=== PATIENT | male | born 1985 | race Caucasian/White ===

== ENCOUNTER 2016-11-23 07:38 | Day surgery (SDC) | payer BC ==
[~2016-11-23 07:38] MED LIST: Lactated Ringers 1,000 ML IV SCH; Lidocaine 1%/Sod Bicarbonate in NS 8.4% 1 ML Syringe PRN; Sodium Chloride 0.9% 10 ML Syringe FLUSH PRN
[2016-11-23] MEDS ORDERED: Bupivacaine 0.25% 30 ML SDV ONE (07:55)
--- NOTE | 2016-11-23 08:26 | PCM.PREANE ---
Preanesthetic Assessment - Procedure Proposed Procedure: Repair right 5th metacarpal fracture - Anesthesia/Transfusion/Family Hx Anesthesia History: Prior Anesthesia Without Reaction (patient states local anesthetic is not very effective for him) Family History of Anesthesia Reaction: No Transfusion History: No Prior Transfusion(s) Intubation History: Unknown - Review of Systems General: No Symptoms Pulmonary: Other (symbicort daily, albuterol prn ) Cardiovascular: No Symptoms Gastrointestinal: Difficulty swallowing (eosinophilic esophagitis ) Neurological: No Symptoms Other: Reports: None - Physical Assessment NPO Status Date: 11/22/16 NPO Status Time: 23:30 O2 Sat by Pulse Oximetry: 97 Respiratory Rate: 16 Vital Signs: Last Vital Signs Temp 36.6 C 11/23/16 07:42 Pulse 73 11/23/16 07:42 Resp 16 11/23/16 07:42 BP 139/100 H 11/23/16 07:42 Pulse Ox 97 11/23/16 07:42 Height: 1.8 m Weight: 112.945 kg ASA Class: 2 Mental Status: Alert & Oriented x3 Airway Class: Mallampati = 1 Dentition: Reports: Normal Dentition Thyro-Mental Finger Breadths: 3 Mouth Opening Finger Breadths: 3 ROM/Head Extension: Full Lungs: Clear to auscultation, Normal respiratory effort Cardiovascular: Regular Rate, Regular Rhythm - Lab Values: Laboratory Last Values WBC 6.41 K/mm3 (4.23-9.07) 11/22/16 11:25 RBC 5.69 M/mm3 (4.63-6.08) 11/22/16 11:25 Hgb 17.0 gm/L (13.7-17.5) 11/22/16 11:25 Hct 48.8 % (40.1-51.0) 11/22/16 11:25 MCV 85.8 fl (79.0-92.2) 11/22/16 11:25 MCH 29.9 pg (25.7-32.2) 11/22/16 11:25 MCHC 34.8 g/dl (32.2-35.5) 11/22/16 11:25 RDW Std Deviation 39.8 fL (35.1-43.9) 11/22/16 11:25 Plt Count 201 K/mm3 (163-337) 11/22/16 11:25 MPV 10.0 fl (9.4-12.3) 11/22/16 11:25 Neut % (Auto) 56.4 % (34.0-67.9) 11/22/16 11:25 Lymph % (Auto) 31.8 % (21.8-53.1) 11/22/16 11:25 [place] % (Auto) 8.4 % (5.3-12.2) 11/22/16 11:25 Eos % (Auto) 2.7 (0.8-7.0) 11/22/16 11:25 Baso % (Auto) 0.5 % (0.1-1.2) 11/22/16 11:25 Neut # (Auto) 3.62 K/mm3 (1.78-5.38) 11/22/16 11:25 Lymph # (Auto) 2.04 K/mm3 (1.32-3.57) 11/22/16 11:25 [place] # (Auto) 0.54 K/mm3 (0.30-0.82) 11/22/16 11:25 Eos # (Auto) 0.17 K/mm3 (0.04-0.54) 11/22/16 11:25 Baso # (Auto) 0.03 K/mm3 (0.01-0.08) 11/22/16 11:25 Sodium 144 mEq/L (136-145) 11/22/16 11:25 Potassium 4.4 mEq/L (3.5-5.1) 11/22/16 11:25 Chloride 107 mEq/L (98-107) 11/22/16 11:25 Carbon Dioxide 30 mEq/L (21-32) 11/22/16 11:25 Anion Gap 11.4 (5-15) 11/22/16 11:25 BUN 13 mg/dL (7-18) 11/22/16 11:25 Creatinine 1.2 mg/dL (0.7-1.3) 11/22/16 11:25 Est Cr Clr Drug Dosing TNP 11/22/16 11:25 Estimated GFR (MDRD) > 60 mL/min (>60) 11/22/16 11:25 BUN/Creatinine Ratio 10.8 (14-18) L 11/22/16 11:25 Glucose 94 mg/dL (74-106) 11/22/16 11:25 Calcium 9.2 mg/dL (8.5-10.1) 11/22/16 11:25 MRSA (PCR) Negative 11/22/16 11:25 - Allergies Allergies/Adverse Reactions: Allergies Allergy/AdvReac Type Severity Reaction Status Date / Time No Known Allergies Allergy Verified 11/23/16 08:19 - Blood Blood Available: No Product(s) Available: None - Acknowledgements Anesthesia Type Planned: MAC Pt an Appropriate Candidate for the Planned Anesthesia: Yes Alternatives and Risks of Anesthesia Discussed w Pt/Guardian: Yes Pt/Guardian Understands and Agrees with Anesthesia Plan: Yes PreAnesthesia Questionnaire HEENT History: Reports: Impaired vision, Other (see below) Other HEENT History: glasses Cardiovascular History: Reports: None Respiratory History: Reports: Asthma Gastrointestinal History: Reports: Other (see below) Other Gastrointestinal History: eosinophillic esohpagitis SEAM SEWER History: Reports: None Musculoskeletal History: Reports: None Neurological History: Reports: None Psychiatric History: Reports: None Endocrine/Metabolic History: Reports: None Hematologic History: Reports: None Immunologic History: Reports: None Oncologic (Cancer) History: Reports: None Dermatologic History: Reports: None - Past Surgical History Head Surgeries/Procedures: Reports: None GI Surgical History: Reports: EGD Male Surgical History: Reports: Vasectomy - SUBSTANCE USE Smoking Status *Q: Never Smoker Recreational Drug Use History: No - HOME MEDS Home Medications: Home Meds Albuterol [IJD: Ventolin HFA] 1 - 2 puff INH Q4H PRN 11/22/16 [History] Budesonide/Formoterol [Symbicort 160-4.5 MCG] 1 puff INH DAILY 11/22/16 [History ] Methylphenidate [Ritalin] 10 mg PO DAILY PRN 11/22/16 [History] Omeprazole Magnesium [Prilosec Otc] 20 mg PO DAILY 11/22/16 [History] Hydrocodone/Acetaminophen [[place] 5-325 Tablet] 1 - 2 each PO Q6H PRN #30 tablet 11/23/16 [Rx] - CURRENT (IN HOUSE) MEDS Current Meds: Current Medications Lactated Ringer's (Ringers, Lactated) 1,000 mls @ 125 mls/hr IV ASDIRECTED CARLOS Stop: 11/23/16 23:00 Last Admin: 11/23/16 08:06 Dose: 125 mls/hr Lidocaine/Sodium Bicarbonate (Buffered Lidocaine 1% In Ns 8.4%) 0.25 ml .XX ONETIME PRN PRN Reason: Prior to IV Start Stop: 11/23/16 18:00 Last Admin: 11/23/16 08:06 Dose: 0.25 ml Sodium Chloride (Saline Flush) 10 ml FLUSH ASDIRECTED PRN PRN Reason: Keep Vein Open Stop: 11/23/16 18:00 Discontinued Medications Bupivacaine HCl (Marcaine 0.25%) Confirm Administered Dose 30 ml .ROUTE .[email or web address]- MED ONE Stop: 11/23/16 07:56
[2016-11-23] MEDS ORDERED: Midazolam 1 MG/ML 2 ML SDV ONE (08:43)
[2016-11-23] MEDS ORDERED: fentaNYL 250 MCG/5 ML SDV ONE (08:43)
[2016-11-23] MEDS ORDERED: Propofol 200 MG/20 ML SDV ONE (08:43)
[2016-11-23] MEDS ORDERED: ceFAZolin 1 GM Vial ONE (08:46)
[2016-11-23] MEDS ORDERED: Dexamethasone 4 MG/ML SDV ONE (08:50)
[2016-11-23] MEDS ORDERED: Lidocaine 1% 4 ML ONE (08:51)
[2016-11-23] MEDS ORDERED: Ondansetron 4 MG/2 ML SDV ONE (08:51)
[2016-11-23] MEDS ORDERED: diphenhydrAMINE 50 MG/ML SDV IVPUSH PRN (09:58)
[2016-11-23] MEDS ORDERED: Ondansetron 4 MG/2 ML SDV IVPUSH PRN (09:58)
--- NOTE | 2016-11-23 10:00 | PCM.OPNOTE ---
- General Post-Op/Procedure Note Date of Surgery/Procedure: 11/23/16 Operative Procedure(s): open reduction with percutaneous pinning of right fifth metacarpal neck fracture Pre Op Diagnosis: closed right fifth metacarpal neck fracture Post-Op Diagnosis: Same Anesthesia Technique: General LMA, Local Primary Surgeon: Cem Núñez Anesthesia Provider: Papa Forman Australian Rules Footballer: Michelle Lozano EBL in mLs: 5 Complications: None Condition: Good
--- NOTE | 2016-11-23 10:00 | PCM.POSTAN ---
POST ANESTHESIA ASSESSMENT - MENTAL STATUS Mental Status: alert, oriented - VITAL SIGNS Pulse Rate: 96 SaO2: 92 Resp Rate: 11 Blood Pressure: 138/108 Temperature: 36.4 C - RESPIRATORY Respiratory Status: respiratory rate WNL, airway patent, O2 saturation stable, supplemental oxygen - CARDIOVASCULAR CV Status: pulse rate WNL, blood pressure stable - GASTROINTESTINAL GI Status: no symptoms - PAIN Pain Score: 0 - POST OP HYDRATION Hydration Status: adequate & stable
--- NOTE | 2016-11-23 10:28 | CR ---
Right hand: Multiple fluoroscopic spot views were obtained utilizing C-arm device of the right hand. Comparison: No previous study. Fracture identified within the distal fifth metacarpal. Study shows placement of 2 pins across the fracture line. Fluoroscopy time given as 84.5 seconds. Impression: 1. Findings as noted above. Diagnostic code #2
[2016-11-23] MEDS ORDERED: fentaNYL 100 MCG/2 ML SDV IVPUSH PRN (11:00)
[2016-11-23] MEDS ORDERED: HYDROmorphone 0.5 MG/0.5 ML Syringe IVPUSH PRN (11:00)
--- NOTE | 2016-11-23 11:57 | OR ---
DATE OF OPERATION: 11/23/2016 SURGEON: Cem Núñez MD OPERATION PERFORMED: Open reduction with percutaneous pinning of right fifth metacarpal neck fracture. PREOPERATIVE DIAGNOSIS: Closed right fifth metacarpal neck fracture. POSTOPERATIVE DIAGNOSIS: Closed right fifth metacarpal neck fracture. ANESTHESIA: General LMA with local. ANESTHESIA PROVIDER: Papa Forman. ADOBE LAYER HELPER: Michelle Lozano PA-C. ESTIMATED BLOOD LOSS: Less than 5 mL. COMPLICATIONS: None. CONDITION: Stable. DESCRIPTION OF PROCEDURE: The patient was identified in the preop holding area. Proper site was marked and identified by the surgeon. The patient was taken back to the operating theater, where after adequate anesthesia, the patient's right upper extremity was sterilely prepped and draped in the usual sterile fashion. OR-wide time-out was performed. The patient received 2 grams of IV Ancef. At this time, a closed reduction maneuver was attempted. A pin was placed on the ulnar side, but it was found that it was not reducing adequately. At this time, a small incision was made over the ulnar side of the fifth digit near the metacarpal head. A [place] elevator was placed in the fracture site and then was used to do a better closed reduction. At this time, the previous rotational deformity was completely corrected. There was roughly 35 degrees still of angulation, but at this time, it was decided this was acceptable as the patient had full correction of his angulation and rotational deformity of the digit. At this time, two 0.045 K-wires were placed on either side in bicortical fashion. The patient was found to have adequate reduction, especially of the rotational malalignment. At this time, the pins were then bent and cut. Adequate saline was irrigated through the wound. Nylon was used for closure of the small incision. The patient was placed in a splint. The patient tolerated the procedure well and was sent to PACU in a stable condition. MMODAL /[id number]
[2016-11-23 12:04] VITALS: BP 140/77
--- NOTE | 2016-11-23 13:19 | PCM48HPAN ---
Post Anesthesia Note - EVALUATION WITHIN 48HRS OF ANESTHETIC Vital Signs in Normal Range: Yes Patient Participated in Evaluation: Yes Respiratory Function Stable: Yes Airway Patent: Yes Cardiovascular Function Stable: Yes Hydration Status Stable: Yes Pain Control Satisfactory: Yes Nausea and Vomiting Control Satisfactory: Yes Mental Status Recovered: Yes
== END 2016-11-23 11:36 | disposition home or self-care (01) ==
LOC: JD.SDS 07:38
PROVIDERS: ATTEND Orthopaedic Surgery
PROC: 0PSP04Z Reposition Right Metacarpal with Internal Fixation Device, Open Approach (ICD-10-PCS; principal; 2016-11-23)
DX: S62.336A Displaced fracture of neck of fifth metacarpal bone, right hand, initial encounter for closed fracture (principal); J45.909 Unspecified asthma, uncomplicated; K20.0 Eosinophilic esophagitis; E66.9 Obesity, unspecified; Z79.51 Long term (current) use of inhaled steroids; Z98.890 Other specified postprocedural states; Z79.899 Other long term (current) drug therapy; Z68.34 Body mass index [BMI] 34.0-34.9, adult
CPT/HCPCS: 26615; 36415; 76000; 80048; 85025; 87641; J0690; J1100; J2250; J2405; J3010; J7120; 01830; C1713; C1769; J2704; J3490